=== PATIENT | male | born 1990 | race African-American/Black ===

== ENCOUNTER 2016-06-28 01:54 | Emergency (ER) | payer OTHER ==
[2016-06-28 02:23] LABS: ABSOLUTE BASOPHIL COUNT 0 /CUMM (0.0-0.2); ABSOLUTE EOSINOPHIL COUNT 0.2 /CUMM (0.0-0.7); ABSOLUTE GRANULOCYTE CT 3.9 /CUMM (1.4-6.5); ABSOLUTE LYMPH COUNT 2.3 /CUMM (1.2-3.4); ABSOLUTE MONOCYTE COUNT 0.9 /CUMM (0.10-0.60); BASOPHIL % 0.6 % (0.0-2.0); EOSINOPHIL % 2.7 % (0-5); GRANULOCYTE % 53.6 % (42.2-75.2); HEMATOCRIT 49.1 % (42-52); MEAN CORPUSCULAR HGB 29.3 PG (27.0-31.0); MEAN CORPUSCULAR HGB CONC 33.8 G/DL (33.0-37.0); MEAN CORPUSCULAR VOLUME 86.7 FL (80.0-94.0); PLATELET COUNT 274 /CUMM (130-400); RED BLOOD CELL CT 5.67 /CUMM (4.70-6.10); WHITE BLOOD CELL COUNT 7.2 /CUMM (4.8-10.8)
--- NOTE | 2016-06-28 03:06 | ED GI/GU/ABDOMINAL COMPLAINT ---
History of Present Illness General Chief Complaint: General Adult Stated Complaint: BIBA "THINK I HAVE THE FLU." Source: patient Exam Limitations: no limitations Vital Signs & Intake/Output Vital Signs & Intake/Output Vital Signs Date Time Temp Pulse Resp B/P Pulse O2 O2 Flow FiO2 Ox Delivery Rate 06/28 0456 98.0 90 18 135/72 100 Room Air 06/28 0245 99.0 91 18 145/76 100 Room Air 06/28 0241 Room Air Allergies Coded Allergies: NO KNOWN ALLERGIES (08/19/11) Reconcile Medications Amoxicillin/Potassium Clav (Augmentin 875-125 Tablet) 875 MG-125 MG TABLET 1 TAB PO BID SINUSITIS/BRONCHITIS Benzonatate (Tessalon Perle) 100 MG CAPSULE 1 CAP PO TID PRN COUGH Omeprazole Magnesium (Prilosec Otc) 20 MG TABLET.DR 1 TAB PO DAILY STOMACH ACID Ondansetron (Zofran Odt) 4 MG TAB.RAPDIS 1 TAB SL TID PRN NAUSEA Triage Note: TRIAGe: PATIENT MARTHA FROM HOME REPORTING "THINK I HAVE HAD THE FLU X 1 MONTH," +N/V/D, +ABD PAIN, GENERALIZED. PATIENT REPORTING +NOSE BLEED TODAY, DENIES NOSE BLEED FOR PAST FEW HOURS. Triage Nurses Notes Reviewed? yes Onset: Gradual Duration: day(s): Timing: recent history Quality/Severity: sinus congestion and drainage. Location: no abdominal pain Radiation: no radiation Activities at Onset: "I've been sick for the past few weeks." Prior Abdominal Problems: none Modifying Factors: Improves With: rest. Associated Symptoms: post-tussive emesis HPI: 26 yo gentleman in prior good health presents with several weeks of sinus congestion, cough, phlegm. "I wake up and have a lot of phlegm... I feel nauseous... I throw up.... I've felt hot and cold." He is otherwise well, has no shortness of breath or chest pain. Past History Travel History Traveled to [place] past 21 day No Medical History Any Pertinent Medical History? see below for history Neurological: NONE EENT: NONE Cardiovascular: NONE Respiratory: NONE Gastrointestinal: NONE Hepatic: NONE Renal: NONE Musculoskeletal: NONE Psychiatric: NONE Endocrine: NONE Blood Disorders: NONE Cancer(s): NONE [employer] INSPECTOR/Reproductive: NONE Surgical History Surgical History: none Psychosocial History What is your primary language Icelandic Tobacco Use: Current Not Daily Family History Hx Contributory? No Review of Systems Review of Systems Constitutional: Reports: no symptoms. EENTM: Reports: no symptoms. Respiratory: Reports: no symptoms. Cardiovascular: Reports: no symptoms. GI: Reports: no symptoms. Genitourinary: Reports: no symptoms. Musculoskeletal: Reports: no symptoms. Skin: Reports: no symptoms. Neurological/Psychological: Reports: no symptoms. Hematologic/Endocrine: Reports: no symptoms. Immunologic/Allergic: Reports: no symptoms. All Other Systems: Reviewed and Negative Physical Exam Physical Exam General Appearance: well developed/nourished, mild distress Head: atraumatic, normal appearance Eyes: Bilateral: normal appearance. Ears, Nose, Throat, Mouth: hearing grossly normal Neck: normal inspection, supple, full range of motion, normal alignment Respiratory: normal breath sounds, chest non-tender, no respiratory distress, quiet respiration, lungs clear Cardiovascular: regular rate/rhythm Gastrointestinal: normal bowel sounds, soft, non-tender, no organomegaly Back: normal inspection, normal range of motion Extremities: normal range of motion Neurologic/Psych: no motor/sensory deficits, awake, alert, oriented x 3 Skin: intact, normal color, warm/dry Core Measures ACS in differential dx? No Severe Sepsis Present: No Septic Shock Present: No Progress Differential Diagnosis: gastroenteritis vs post-tussive emesis vs other. Plan of Care: Orders Procedure Date/time Status RAPID VIRAL INFLUENZA A 06/28 227 Active LIPASE 06/28 209 Complete COMPREHENSIVE METABOLIC PANEL 06/28 209 Complete CBC WITHOUT DIFFERENTIAL 06/28 209 Complete AMYLASE 06/28 209 Complete Laboratory Tests 06/28/16 0213: Anion Gap 19 H, Estimated GFR > 60, BUN/Creatinine Ratio 6.0 L, Glucose 124 H , Calcium 9.2, Total Bilirubin 0.5, AST 85 H, ALT 108 H, Alkaline Phosphatase 71, Total Protein 7.9, Albumin 4.6, Globulin 3.3, Albumin/Globulin Ratio 1.4, Amylase 38, Lipase 164, CBC w Diff NO MAN DIFF REQ, RBC 5.67, MCV 86.7, MCH 29.3 , RDW 13.0, MPV 7.0 L, Gran % 53.6, Lymphocytes % 31.2, Monocytes % 11.9 H, Eosinophils % 2.7, Basophils % 0.6, Absolute Granulocytes 3.9, Absolute Lymphocytes 2.3, Absolute Monocytes 0.9 H, Absolute Eosinophils 0.2, Absolute Basophils 0, PUBS MCHC 33.8 Initial ED EKG: none Departure Departure Disposition: HOME OR SELF CARE Condition: Stable Clinical Impression Primary Impression: Bronchitis Secondary Impressions: Post-tussive emesis, Sinusitis Referrals: PATIENT HAS NO PRIMARY CARE DR (PCP/Family) Departure Forms: Customer Survey General Discharge Information Prescriptions: Current Visit Scripts Ondansetron (Zofran Odt) 1 TAB SL TID PRN NAUSEA #10 TAB Amoxicillin/Potassium Clav (Augmentin 875-125 Tablet) 1 TAB PO BID #20 TAB Omeprazole Magnesium (Prilosec Otc) 1 TAB PO DAILY #30 TAB Benzonatate (Tessalon Perle) 1 CAP PO TID PRN COUGH #30 CAP Comments pt feels well after iv fluids and zofran.... pt with history of cigarette use and several weeks of worsening sinus congestion/cough, with post-tussive emesis. Will treat with abx for sinusitis/bronchitis. Abx and supportive medications given. Exam benign. Labs benign. Pt safe for discharge with close follow up advised.
[2016-06-28] MEDS ORDERED: ZOFRAN ODT4 M1 SL (03:13)
[2016-06-28] MEDS ORDERED: AUGMENTIN 875-1 EACH PO (03:13)
[2016-06-28] MEDS ORDERED: TESSALON PERLE100 M1 PO (03:13)
[2016-06-28] MEDS ORDERED: PRILOSEC OTC20 M1 PO (03:13)
[2016-06-28 04:56] VITALS: BP 135/72
== END 2016-06-28 04:57 ==
LOC: ERH 01:54
PROVIDERS: Emergency Medicine
DX: J40 Bronchitis, not specified as acute or chronic (principal); J32.9 Chronic sinusitis, unspecified; R11.10 Vomiting, unspecified; Z72.0 Tobacco use
CPT/HCPCS: 87804; 87804-59; 96361; 96374; J2405